=== PATIENT | female | born 1950 | race Caucasian/White ===

== ENCOUNTER → 2024-02-05 12:45 | Outpatient (REF) | payer MEDICARE, SELFPAY ==
[2024-02-05 15:36] LABS: % Basophils 0.5 % (0-2); % Eosinophils 1.6 % (0-6); % Immature Granulocytes 0.1 % (0-0.5); % Lymphocytes 19.5 % (20.5-51.1); % Monocytes 6.6 % (1.7-9.3); % Neutrophils 71.7 % (42.2-75.2); Absolute Eosinophils 0.1 10^3/uL (0-0.7); Absolute Lymphocytes 1.6 10^3/uL (1.2-3.4); Absolute Monocytes 0.5 10^3/uL (0.1-0.6); Absolute Neutrophils 5.7 10^3/uL (1.4-6.5); Hematocrit 36.1 % (37.0-47.0); Hemoglobin 11.1 g/dL (12.0-16.0); Mean Corp Hgb Conc. 30.7 g/dL (33.0-37.0); Mean Corpuscular Hgb 26.6 pg (27.0-31.0); Mean Corpuscular Volume 86.6 fL (81.0-99.0); Mean Platelet Volume 10.8 fL (7.4-10.4); Nucleated Red Blood Cells % 0 %; Platelet Count 256 10^3/uL (130-400); Red Blood Cell Count 4.17 10^6/uL (4.20-5.40); Red Cell Dist. Width 14.9 % (11.5-14.5)
[2024-02-05 15:52] LABS: ALT (SGPT) 38 U/L (0-35); AST (SGOT) 63 U/L (14-36); Albumin 4.4 g/dl (3.5-5.0); Alkaline Phosphatase 56 U/L (38-126); Blood Urea Nitrogen 14 mg/dl (7-17); Calcium 10.4 mg/dl (8.4-10.2); Carbon Dioxide 25 mmol/L (22-30); Chloride 104 mmol/L (98-107); Glucose 106 mg/dl (70-99); HDL Cholesterol 32 mg/dl; LDL Cholesterol, Calculated 17 mg/dl; Magnesium 1.7 mg/dl (1.6-2.3); Phosphorus 3.7 mg/dl (2.5-4.5); Potassium 4.2 mmol/L (3.5-5.1); Sodium 135 mmol/L (135-145); Total Bilirubin 0.6 mg/dl (0.2-1.3); Total Cholesterol 85 mg/dl (50-199); Total Protein 7.4 g/dl (6.3-8.2); Triglyceride 180 mg/dl (10-149); Uric Acid 3.3 mg/dl (2.5-6.2); Very Low Density Lipoprotein 36 mg/dl (0-30); eGFR > 60.00
[2024-02-05 16:15] LABS: Microalbumin, Random Urine <0.6 mg/dl (0.6-1.7); TSH 1.76 uIU/ml (0.47-4.68)
[2024-02-05 16:51] LABS: Folate > 20.0 ng/ml (2.76-20); Vitamin B12 893 pg/ml (239-931)
[2024-02-06 08:32] LABS: Glycohemoglobin (HgbA1c) 6.3 % (4.0-5.6)
[2024-02-06 09:00] LABS: Intact PTH 39.6 pg/ml (13.6-85.8)
[2024-02-08 01:21] LABS: Fructosamine 247 umol/L (205-285)
[2024-02-08 08:59] LABS: Vitamin D 1,25 Dihydroxy 62.1 pg/mL (19.9-79.3)
== END ==
LOC: HWLAB 12:45
PROVIDERS: ATTENDING PHYSICIAN Internal Medicine Endocrinology, Diabetes & Metabolism; FAMILY PHYSICIAN Internal Medicine; REFERRING PHYSICIAN Internal Medicine Cardiovascular Disease
DX: E11.65 Type 2 diabetes mellitus with hyperglycemia (principal); E78.2 Mixed hyperlipidemia; I10 Essential (primary) hypertension; D51.9 Vitamin B12 deficiency anemia, unspecified; E21.0 Primary hyperparathyroidism; E55.9 Vitamin D deficiency, unspecified
CPT/HCPCS: 36415; 80053; 80061; 82043; 82570; 82607; 82652; 82746; 82985; 83036; 83735; 83970; 84100; 84436; 84439; 84443; 84550; 85025

== ENCOUNTER → 2024-02-20 12:00 | Outpatient (REF) | payer MEDICARE, SELFPAY ==
[2024-02-20 13:13] LABS: Ionized Calcium 1.35 mMOL/L (1.15-1.33)
== END ==
LOC: REG 12:00
PROVIDERS: ATTENDING PHYSICIAN Internal Medicine Endocrinology, Diabetes & Metabolism
DX: E11.65 Type 2 diabetes mellitus with hyperglycemia (principal); E78.2 Mixed hyperlipidemia; I10 Essential (primary) hypertension; D51.9 Vitamin B12 deficiency anemia, unspecified; E55.9 Vitamin D deficiency, unspecified; E21.0 Primary hyperparathyroidism
CPT/HCPCS: 36415; 82330

== ENCOUNTER → 2024-04-12 13:58 | Outpatient (REF) | payer MEDICARE, SELFPAY ==
[2024-04-12 14:34] LABS: Hematocrit 39.5 % (37.0-47.0); Hemoglobin 12.8 g/dL (12.0-16.0); Mean Corp Hgb Conc. 32.4 g/dL (33.0-37.0); Mean Corpuscular Hgb 26.7 pg (27.0-31.0); Mean Corpuscular Volume 82.3 fL (81.0-99.0); Mean Platelet Volume 9.9 fL (7.4-10.4); Platelet Count 227 10^3/uL (130-400); Red Cell Dist. Width 14.8 % (11.5-14.5); White Blood Cell Count 8.1 10^3/uL (4.8-10.8)
[2024-04-12 15:04] LABS: ALT (SGPT) 39 U/L (0-35); AST (SGOT) 54 U/L (14-36); Albumin 4.5 g/dl (3.5-5.0); Alkaline Phosphatase 55 U/L (38-126); Direct Bilirubin 0.3 mg/dl (0.0-0.4); Iron 71 ug/dl (37-170); Total Bilirubin 0.5 mg/dl (0.2-1.3); Total Protein 7.5 g/dl (6.3-8.2)
[2024-04-12 15:13] LABS: Percent Saturation 15 % (20-50); Total Iron Binding Capacity 465 ug/dl (265-497)
[2024-04-12 15:38] LABS: Ferritin 20.7 ng/ml (11.1-264.0)
== END ==
LOC: REG 13:58
PROVIDERS: ATTENDING PHYSICIAN Nurse Practitioner Family; FAMILY PHYSICIAN Internal Medicine; REFERRING PHYSICIAN Internal Medicine Cardiovascular Disease
DX: R19.7 Diarrhea, unspecified (principal); D64.9 Anemia, unspecified
CPT/HCPCS: 36415; 74018; 80076; 82728; 83540; 83550; 85027

== ENCOUNTER → 2024-04-23 12:37 | Outpatient (REF) | payer MEDICARE, SELFPAY ==
[2024-04-23 14:34] LABS: ALT (SGPT) 38 U/L (0-35); AST (SGOT) 64 U/L (14-36); Albumin 4.5 g/dl (3.5-5.0); Alkaline Phosphatase 50 U/L (38-126); Blood Urea Nitrogen 18 mg/dl (7-17); Calcium 11.1 mg/dl (8.4-10.2); Carbon Dioxide 26 mmol/L (22-30); Chloride 103 mmol/L (98-107); Glucose 97 mg/dl (70-99); Potassium 4.4 mmol/L (3.5-5.1); Sodium 140 mmol/L (135-145); Total Bilirubin 0.6 mg/dl (0.2-1.3); Total Protein 7.7 g/dl (6.3-8.2); eGFR > 60.00
[2024-04-23 15:30] LABS: Hepatitis B Surface Antigen Negative (Negative)
[2024-04-23 15:32] LABS: Hepatitis A IgM Antibody Negative (Negative)
[2024-04-23 15:47] LABS: Hepatitis B Core Ab, Total Negative (Negative); Hepatitis B Surface Antibody Negative; Hepatitis C Antibody Negative (Negative)
[2024-04-23 17:49] LABS: Hepatitis A Antibody, Total Negative (Negative)
[2024-04-24 15:13] LABS: tTG IgA Antibody 5.8 EU/ml (0-19); tTG IgG Antibody 16.5 EU/ml (0-19)
[2024-04-25 05:51] LABS: IgA 429 mg/dl (70-400); IgG 1009 mg/dl (700-1600); IgM 154 mg/dl (40-230)
[2024-04-26 07:52] LABS: F-Actin Antibody IgG 7 Units (0-19); Mitochondrial M2 Ab, IgG 7.5 Units (0.0-24.9)
[2024-04-26 09:18] LABS: ANA, IgG Reflex to HEp-2 None Detected (None Detected)
== END ==
LOC: REG 12:37
PROVIDERS: Internal Medicine Gastroenterology; ATTENDING PHYSICIAN Nurse Practitioner Family
DX: R19.7 Diarrhea, unspecified (principal); R79.89 Other specified abnormal findings of blood chemistry
CPT/HCPCS: 36415; 80053; 82103; 82390; 82653; 82705; 82784; 83516; 83993; 86015; 86038; 86231; 86376; 86381; 86704; 86706; 86708; 86709; 86803; 87045; 87046; 87324; 87328; 87329; 87338; 87340; 87427; 87449; 89055

== ENCOUNTER → 2024-07-12 11:08 | Outpatient (REF) | payer MEDICARE, SELFPAY | LOC: HWRAD 11:08 | PROVIDERS: ATTENDING PHYSICIAN Internal Medicine Gastroenterology; FAMILY PHYSICIAN Internal Medicine | DX: R79.89 Other specified abnormal findings of blood chemistry (principal) | CPT/HCPCS: 76700 ==

== ENCOUNTER → 2024-09-03 10:05 | Outpatient (REF) | payer MEDICARE, SELFPAY | LOC: RAD 10:05 | PROVIDERS: ATTENDING PHYSICIAN Nurse Practitioner Family; FAMILY PHYSICIAN Internal Medicine | DX: R10.12 Left upper quadrant pain (principal) | CPT/HCPCS: 74246 ==

== ENCOUNTER → 2024-12-11 14:35 | Outpatient (REF) | payer MEDICARE, SELFPAY | LOC: HWRAD 14:35 | PROVIDERS: ATTENDING PHYSICIAN Internal Medicine Gastroenterology; FAMILY PHYSICIAN Internal Medicine; REFERRING PHYSICIAN Internal Medicine Endocrinology, Diabetes & Metabolism | DX: R10.12 Left upper quadrant pain (principal); R14.0 Abdominal distension (gaseous) | CPT/HCPCS: 76700 ==

== ENCOUNTER 2024-12-19 06:27 | Day surgery (SDC) | payer MEDICARE, SELFPAY ==
[2024-12-19 09:21] LABS: Glucose - Point of Care 127 mg/dl (70-99)
== END 2024-12-19 12:49 | disposition home or self-care (01) ==
LOC: GI 06:27
PROVIDERS: ATTENDING PHYSICIAN Internal Medicine Gastroenterology
DX: K62.5 Hemorrhage of anus and rectum (principal); R19.7 Diarrhea, unspecified; K64.0 First degree hemorrhoids; K64.4 Residual hemorrhoidal skin tags; K63.89 Other specified diseases of intestine; K51.40 Inflammatory polyps of colon without complications; R10.12 Left upper quadrant pain; R14.0 Abdominal distension (gaseous); R12 Heartburn; K31.7 Polyp of stomach and duodenum; K31.89 Other diseases of stomach and duodenum; R93.3 Abnormal findings on diagnostic imaging of other parts of digestive tract; K29.50 Unspecified chronic gastritis without bleeding
CPT/HCPCS: 45385; 45380; 43239; 88305; 82962; 88342

== ENCOUNTER → 2025-02-20 11:48 | Outpatient (REF) | payer MEDICARE, SELFPAY | LOC: PAVMRI 11:48 | PROVIDERS: ATTENDING PHYSICIAN Internal Medicine Gastroenterology; FAMILY PHYSICIAN Internal Medicine | DX: Q45.3 Other congenital malformations of pancreas and pancreatic duct (principal) | CPT/HCPCS: 74183; A9575 ==

== ENCOUNTER → 2025-03-31 14:47 | Outpatient (REF) | payer MEDICARE, SELFPAY ==
[2025-03-31 16:55] LABS: Hepatitis B Surface Antigen Negative (Negative)
== END ==
LOC: REG 14:47
PROVIDERS: ATTENDING PHYSICIAN Internal Medicine Gastroenterology
DX: K76.0 Fatty (change of) liver, not elsewhere classified (principal)
CPT/HCPCS: 36415; 86038; 87340

== ENCOUNTER → 2025-04-15 14:33 | Outpatient (REF) | payer MEDICARE, SELFPAY | LOC: RAD 14:33 | PROVIDERS: ATTENDING PHYSICIAN Internal Medicine Gastroenterology; FAMILY PHYSICIAN Internal Medicine | DX: R14.0 Abdominal distension (gaseous) (principal) | CPT/HCPCS: 76830; 76856 ==

== ENCOUNTER → 2025-07-08 15:21 | Outpatient (REF) | payer MEDICARE, SELFPAY | LOC: MRI 15:21 | PROVIDERS: ATTENDING PHYSICIAN Internal Medicine Gastroenterology; FAMILY PHYSICIAN Internal Medicine | DX: K76.0 Fatty (change of) liver, not elsewhere classified (principal) | CPT/HCPCS: 74181; 76391 ==

== ENCOUNTER → 2025-07-25 11:30 | Outpatient (REF) | payer MEDICARE, SELFPAY ==
[2025-07-25 12:51] LABS: Hematocrit 38.6 % (37.0-47.0); Hemoglobin 12.8 g/dL (12.0-16.0); Mean Corp Hgb Conc. 33.2 g/dL (33.0-37.0); Mean Corpuscular Volume 86.5 fL (81.0-99.0); Nucleated Red Blood Cells % 0 %; Platelet Count 179 10^3/uL (130-400); Red Cell Dist. Width 14.0 % (11.5-14.5)
[2025-07-25 12:59] LABS: INR 1.18; PT 15.4 Sec (11.4-14.6)
[2025-07-25 13:08] LABS: Microalb - Urine Creatinine 127.600 mg/dl
[2025-07-25 13:13] LABS: Microalbumin, Random Urine 1.4 mg/dl (0.6-1.7)
[2025-07-25 13:16] LABS: ALT (SGPT) 40 U/L (0-35); AST (SGOT) 45 U/L (14-36); Albumin 4.3 g/dl (3.5-5.0); Alkaline Phosphatase 46 U/L (38-126); Blood Urea Nitrogen 17 mg/dl (7-17); Calcium 10.8 mg/dl (8.4-10.2); Carbon Dioxide 29 mmol/L (22-30); Chloride 106 mmol/L (98-107); Glucose 136 mg/dl (70-99); Magnesium 1.6 mg/dl (1.6-2.3); Potassium 4.4 mmol/L (3.5-5.1); Sodium 140 mmol/L (135-145); Total Protein 7.2 g/dl (6.3-8.2); Uric Acid 3.7 mg/dl (2.5-6.2); Very Low Density Lipoprotein 38 mg/dl (0-30); eGFR > 60.00
[2025-07-25 13:22] LABS: HDL Cholesterol 31 mg/dl; LDL Cholesterol, Calculated 32 mg/dl
[2025-07-25 13:33] LABS: Vitamin D, 25-OH*** 44.0 ng/mL (30-80)
[2025-07-25 13:46] LABS: TSH 1.22 uIU/ml (0.47-4.68)
[2025-07-25 13:58] LABS: AFP Male/Tumor Marker 2.11 ng/ml
[2025-07-25 14:04] LABS: Glycohemoglobin (HgbA1c) 6.4 % (4.0-5.6)
[2025-07-27 23:54] LABS: Total T3 (Sendout) 135 ng/dL (80-200)
== END ==
LOC: REG 11:30
PROVIDERS: ATTENDING PHYSICIAN Internal Medicine Gastroenterology; FAMILY PHYSICIAN Internal Medicine; OTHER PHYSICIAN Internal Medicine Cardiovascular Disease; OTHER PHYSICIAN Internal Medicine Endocrinology, Diabetes & Metabolism
DX: K74.69 Other cirrhosis of liver (principal); E11.618 Type 2 diabetes mellitus with other diabetic arthropathy; E87.4 Mixed disorder of acid-base balance; I10 Essential (primary) hypertension
CPT/HCPCS: 80053; 80061; 82043; 82105; 82248; 82306; 82570; 82985; 83036; 83735; 84100; 84436; 84439; 84443; 84480; 84550; 85025; 85610

== ENCOUNTER → 2025-07-30 10:47 | Outpatient (REF) | payer MEDICARE, SELFPAY | LOC: HWRAD 10:47 | PROVIDERS: ATTENDING PHYSICIAN Internal Medicine Gastroenterology; FAMILY PHYSICIAN Internal Medicine | DX: K74.69 Other cirrhosis of liver (principal) | CPT/HCPCS: 76700 ==